=== PATIENT | female | born 1985 | race American Indian/Alaskan Native ===

== ENCOUNTER 2016-12-30 19:22 | Emergency (ER) | payer SELFPAY ==
[2016-12-30 20:59] LABS: Basophils % (Auto) 1.5 % (0.0-1.8); Eosinophils % (Auto) 1.5 % (0.0-4.3); Hematocrit 33.4 % (30.3-42.9); Hemoglobin 10.2 gm/dl (10.1-14.3); Mean Corpuscular HGB Conc 31 % (30-34); Mean Corpuscular Volume 78 fl (79-97); Platelet Count 407 K/mm3 (140-440); White Blood Count 7.3 K/mm3 (4.5-11.0)
[2016-12-30 21:02] LABS: Mean Corpuscular Hemoglobin 24 pg (28-32)
[2016-12-30 21:12] LABS: Bacteria,Urine 3+ /HPF (Negative); Bilirubin,Urine NEG (Negative); Blood,Urine NEG (Negative); Ketones,Urine NEG (Negative); Leukocyte Esterase,Urine NEG (Negative); Mucus,Urine FEW /HPF; Nitrite,Urine POS (Negative); Protein,Urine <15 mg/dL mg/dL (Negative); Urobilinogen,Urine < 2.0 mg/dL (<2.0)
[2016-12-30 21:20] LABS: Alanine Aminotransferase 13 units/L (7-56); Albumin 3.9 g/dL (3.9-5); Albumin/Globulin Ratio 1.5 %; Alkaline Phosphatase 80 units/L (35-129); Anion Gap 15 mmol/L; BUN/Creatinine Ratio 11; Bilirubin,Total < 0.20 mg/dL (0.1-1.2); Blood Urea Nitrogen 8 mg/dL (7-17); Calcium 8.6 mg/dL (8.4-10.2); Carbon Dioxide 24 mmol/L (22-30); Glucose 92 mg/dL (65-100); Lipase 30 units/L (13-60); Potassium 3.8 mmol/L (3.6-5.0); Sodium 136 mmol/L (137-145); Total Protein 6.5 g/dL (6.3-8.2)
--- NOTE | 2016-12-31 00:52 | Emergency Department Report ---
ED Female HPI - General Chief complaint: Urogenital-Female Stated complaint: ABD PAIN Time Seen by Provider: 12/31/16 00:19 Source: patient, family Mode of arrival: Ambulatory Limitations: No Limitations - History of Present Illness Initial comments: Patient reports that she is having right-sided flank pain and lower back pain 5 days. She says she is having urinary frequency and foul-smelling urine. She also states she was having white vaginal discharge that is itchy. Denies any concerned about STDs. Denies any nausea or vomiting. Denies any fever or chills. Denies taking any nvla-dxl-bejwbid medication. Denies any burning on urination. She says the pain is located in her lower back but reported in triage that her pain was at her flank on the right side. Pain is 8 out of 10 to lower back and said it's achy and constant. Denies any vaginal bleed. Patient has no concern for because she said she had bilateral tubal ligation. MD Complaint: other (urinary frequency, foul smelling odor and back pain) Onset/Timin -: days(s) Location: other (lower back pain) Radiation: non-radiating Severity: severe Severity scale (0 -10): 8 Quality: aching Consistency: constant Improves with: none Worsens with: none Are you Now?: No (she says she had bilateral tubal ligation) Last Menstrual Period: 12/15/16 EDC: 09/21/17 Associated Symptoms: vaginal discharge (white vaginal discharge that is normal per patient). denies: vaginal bleeding, abdominal pain, nausea/vomiting, fever/ chills, headaches, loss of appetite, dysuria, hematuria, rash, seizure, shortness of breath, syncope, weakness, other - Related Data Sexually active: Yes Previous Rx's Medication Instructions Recorded Last Taken Type Naproxen 500 mg PO Q12H PRN 3 Days #6 tablet 12/31/16 Unknown Rx Nitrofurantoin Macrocrystal 100 mg PO Q12H 7 Days #14 capsule 12/31/16 Unknown Rx [Nitrofurantoin] Allergies Allergy/AdvReac Type Severity Reaction Status Date / Time No Known Allergies Allergy Verified 12/30/16 20:28 ED Review of Systems ROS: Stated complaint: ABD PAIN Other details as noted in HPI Comment: All other systems reviewed and negative Constitutional: no symptoms reported Respiratory: no symptoms reported Cardiovascular: denies: chest pain, palpitations, dyspnea on exertion, edema, syncope, paroxysmal nocturnal dyspnea Gastrointestinal: denies: abdominal pain, nausea, vomiting, diarrhea, constipation, hematemesis, melena, hematochezia Genitourinary: frequency, discharge, other (ports foul-smelling odor). denies: urgency, dysuria, hematuria, abnormal menses Musculoskeletal: back pain. denies: joint swelling, arthralgia, myalgia Skin: denies: rash Neurological: denies: headache, weakness, numbness, paresthesias, confusion, abnormal gait, vertigo ED Past Medical Hx - Past Medical History Previous Medical History?: No - Surgical History Past Surgical History?: Yes Additional Surgical History: x5 tonsilectomy tubal ligation 10/19 - Family History Family history: hypertension - Social History Smoking Status: Current Some Day Smoker Substance Use Type: Alcohol - Medications Home Medications: Home Medications Medication Instructions Recorded Confirmed Last Taken Type Naproxen 500 mg PO Q12H PRN 3 Days #6 tablet 12/31/16 Unknown Rx Nitrofurantoin Macrocrystal 100 mg PO Q12H 7 Days #14 capsule 12/31/16 Unknown Rx [Nitrofurantoin] ED Physical Exam - General Limitations: No Limitations General appearance: alert, in no apparent distress - Head Head exam: Present: atraumatic, normocephalic, normal inspection - Eye Eye exam: Present: normal appearance, PERRL, EOMI. Absent: periorbital swelling , periorbital tenderness Pupils: Present: normal accommodation - ENT ENT exam: Present: normal exam, normal orophraynx, mucous membranes moist, TM's normal bilaterally, normal external ear exam - Neck Neck exam: Present: normal inspection, full ROM, other (no C-spine tenderness). Absent: tenderness, meningismus, lymphadenopathy - Respiratory Respiratory exam: Present: normal lung sounds bilaterally. Absent: respiratory distress, chest wall tenderness, accessory muscle use - Cardiovascular Cardiovascular Exam: Present: regular rate, normal rhythm, normal heart sounds. Absent: systolic murmur, diastolic murmur - GI/Abdominal GI/Abdominal exam: Present: soft, normal bowel sounds. Absent: distended, tenderness, guarding, rebound, rigid, organomegaly, mass, bruit, pulsatile mass - Extremities Exam Extremities exam: Present: normal inspection, full ROM, normal capillary refill , other (no clubbing, cyanosis or edema. +2 pulses to extremities. No neurovascular compromise.). Absent: tenderness, pedal edema, joint swelling, calf tenderness - Back Exam Back exam: Present: normal inspection, full ROM, other (patient able to ambulate without any difficulties.). Absent: tenderness, CVA tenderness (R), CVA tenderness (L), muscle spasm, paraspinal tenderness, vertebral tenderness, rash noted - Neurological Exam Neurological exam: Present: alert, oriented X3, normal gait, reflexes normal, other (no focal neurological deficit). Absent: motor sensory deficit - Psychiatric Psychiatric exam: Present: normal affect, normal mood - Skin Skin exam: Present: warm, dry, intact, normal color. Absent: rash ED Course Vital Signs 12/30/16 20:29 Temperature 98.6 F Pulse Rate 78 Respiratory 18 Rate Blood Pressure 143/93 O2 Sat by Pulse 99 Oximetry - Reevaluation(s) Reevaluation #1: 12/31/16 02:42 urine as positive for nitrites and 3+ bacteria. Patient given and Rocephin 1 g IM in emergency room. Urine CT negative and cultures are pending. CBC with minor abnormalities but she has normal white count, normal platelet and normal H &H. History with sodium of 136 which mildly decreased and patient able to tolerate liquids in the emergency room. ED Medical Decision Making - Lab Data Result diagrams: 12/30/16 20:39 12/30/16 20:39 Lab Results 12/30/16 12/30/16 12/30/16 Range/Units 20:38 20:38 20:39 WBC 7.3 (4.5-11.0) K/mm3 RBC 4.30 (3.65-5.03) M/mm3 Hgb 10.2 (10.1-14.3) gm/dl Hct 33.4 (30.3-42.9) % MCV 78 L (79-97) fl MCH 24 L (28-32) pg MCHC 31 (30-34) % RDW 19.0 H (13.2-15.2) % Plt Count 407 (140-440) K/mm3 Lymph % (Auto) 46.0 H (13.4-35.0) % [place] % (Auto) 10.6 H (0.0-7.3) % Eos % (Auto) 1.5 (0.0-4.3) % Baso % (Auto) 1.5 (0.0-1.8) % Lymph # 3.4 (1.2-5.4) K/mm3 [place] # 0.8 (0.0-0.8) K/mm3 Eos # 0.1 (0.0-0.4) K/mm3 Baso # 0.1 (0.0-0.1) K/mm3 Seg Neutrophils % 40.4 (40.0-70.0) % Seg Neutrophils # 3.0 (1.8-7.7) K/mm3 Sodium (137-145) mmol/L Potassium (3.6-5.0) mmol/L Chloride (98-107) mmol/L Carbon Dioxide (22-30) mmol/L Anion Gap mmol/L BUN (7-17) mg/dL Creatinine (0.7-1.2) mg/dL Estimated GFR ml/min BUN/Creatinine Ratio % Glucose (65-100) mg/dL Calcium (8.4-10.2) mg/dL Total Bilirubin (0.1-1.2) mg/dL AST (5-40) units/L ALT (7-56) units/L Alkaline Phosphatase (35-129) units/L Total Protein (6.3-8.2) g/dL Albumin (3.9-5) g/dL Albumin/Globulin Ratio % Lipase (13-60) units/L Urine Color Yellow (Yellow) Urine Turbidity Clear (Clear) Urine pH 6.0 (5.0-7.0) Ur Specific [place] 1.019 (1.003-1.030) Urine Protein <15 mg/dl (Negative) mg/dL Urine Glucose (UA) Neg (Negative) mg/dL Urine Ketones Neg (Negative) mg/dL Urine Blood Neg (Negative) Urine Nitrite Pos (Negative) Urine Bilirubin Neg (Negative) Urine Urobilinogen < 2.0 (<2.0) mg/dL Ur Leukocyte Esterase Neg (Negative) Urine WBC (Auto) 0.0 (0.0-6.0) /HPF Urine RBC (Auto) 1.0 (0.0-6.0) /HPF U Epithel Cells (Auto) 4.0 (0-13.0) /HPF Urine Bacteria (Auto) 3+ (Negative) /HPF Urine Mucus Few /HPF Urine HCG, Qual Negative (Negative) 12/30/16 Range/Units 20:39 WBC (4.5-11.0) K/mm3 RBC (3.65-5.03) M/mm3 Hgb (10.1-14.3) gm/dl Hct (30.3-42.9) % MCV (79-97) fl MCH (28-32) pg MCHC (30-34) % RDW (13.2-15.2) % Plt Count (140-440) K/mm3 Lymph % (Auto) (13.4-35.0) % [place] % (Auto) (0.0-7.3) % Eos % (Auto) (0.0-4.3) % Baso % (Auto) (0.0-1.8) % Lymph # (1.2-5.4) K/mm3 [place] # (0.0-0.8) K/mm3 Eos # (0.0-0.4) K/mm3 Baso # (0.0-0.1) K/mm3 Seg Neutrophils % (40.0-70.0) % Seg Neutrophils # (1.8-7.7) K/mm3 Sodium 136 L (137-145) mmol/L Potassium 3.8 (3.6-5.0) mmol/L Chloride 101.0 (98-107) mmol/L Carbon Dioxide 24 (22-30) mmol/L Anion Gap 15 mmol/L BUN 8 (7-17) mg/dL Creatinine 0.7 (0.7-1.2) mg/dL Estimated GFR > 60 ml/min BUN/Creatinine Ratio 11 % Glucose 92 (65-100) mg/dL Calcium 8.6 (8.4-10.2) mg/dL Total Bilirubin < 0.20 (0.1-1.2) mg/dL AST 10 (5-40) units/L ALT 13 (7-56) units/L Alkaline Phosphatase 80 (35-129) units/L Total Protein 6.5 (6.3-8.2) g/dL Albumin 3.9 (3.9-5) g/dL Albumin/Globulin Ratio 1.5 % Lipase 30 (13-60) units/L Urine Color (Yellow) Urine Turbidity (Clear) Urine pH (5.0-7.0) Ur Specific [place] (1.003-1.030) Urine Protein (Negative) mg/dL Urine Glucose (UA) (Negative) mg/dL Urine Ketones (Negative) mg/dL Urine Blood (Negative) Urine Nitrite (Negative) Urine Bilirubin (Negative) Urine Urobilinogen (<2.0) mg/dL Ur Leukocyte Esterase (Negative) Urine WBC (Auto) (0.0-6.0) /HPF Urine RBC (Auto) (0.0-6.0) /HPF U Epithel Cells (Auto) (0-13.0) /HPF Urine Bacteria (Auto) (Negative) /HPF Urine Mucus /HPF Urine HCG, Qual (Negative) Urine culture pending - Medical Decision Making ED Course Patient here reports that she has foul-smelling urine with urine frequency and urgency over the last 5 days. She denies any fever, nausea, chills, abdominal pain. She reports back pain at 8 out of 10. She denies any urinary burning. She reports that she had some white vaginal discharge which is not abnormal for her and not have any order and she is not concerned for STDs. Urinalysis positive for nitrites and 3+ bacteria. test is negative. CBC has some mild abnormalities but her white count, H&H and platelets were normal. Chemistry with sodium of 136 which is mildly decreased and patient is able to tolerate oral fluids. Patient is stable and received Rocephin 1 g IM in emergency room urinary tract infection without any adverse reaction. I discussed diagnosis and treatment plan with patient and she voiced understanding and. I told her that she will need to follow up with her primary care physician for follow-up urinary tract infection and if she does not have a primary care physician she can follow up with outside Medical Center. Patient is requesting medication for yeast infection because she said usually when she takes antibiotics she develops a yeast infection. She was not concerned for STD and did not want any testing. I discussed lab results with patient and she voiced understanding. Critical care attestation.: If time is entered above; I have spent that time in minutes in the direct care of this critically ill patient, excluding procedure time. ED Disposition Clinical Impression: Acute cystitis without hematuria, Urine frequency Pain in lower back Qualifiers: Chronicity: acute Back pain laterality: bilateral Sciatica presence: without sciatica Qualified Code(s): M54.5 - Low back pain Disposition: DC-01 TO HOME OR SELFCARE Is pt being admited?: No Does the pt Need Aspirin: No Condition: Stable Instructions: Urinary Tract Infection in Women (ED), Fluconazole (By mouth), Nitrofurantoin Combination (By mouth) Additional Instructions: Please follow-up with your primary care physician and if you do not have one he can follow-up at [facility] for follow-up urinary tract infection. Please increase her fluid intake. Please take antibiotic as prescribed You can take Diflucan on if he develops a yeast infection. Prescriptions: Naproxen 500 mg PO Q12H PRN 3 Days #6 tablet PRN Reason: Pain Nitrofurantoin Macrocrystal [Nitrofurantoin] 100 mg PO Q12H 7 Days #14 capsule Referrals: PRIMARY CARE, [Primary Care Provider] - 3-5 Days [facility] [Outside] - 3-5 Days Forms: Accompanied Note, Work/School Release Form(ED)
[2016-12-31] MEDS ORDERED: XYLOCAINE 1% MPF 5 mL INFILTRATI ONE (01:08)
[2016-12-31] MEDS ORDERED: ROCEPHIN IM STA (01:08)
[2016-12-31] MEDS ORDERED: MOTRIN PO ONE (02:51)
[2016-12-31 03:04] VITALS: BP 140/87
== END 2016-12-31 03:04 | disposition home or self-care (01) ==
LOC: ED 19:22
DX: N30.00 Acute cystitis without hematuria (principal); M54.5 Low back pain; R35.0 Frequency of micturition; F17.200 Nicotine dependence, unspecified, uncomplicated; Z98.51 Tubal ligation status; Z90.89 Acquired absence of other organs
CPT/HCPCS: 36415; 80053; 81001; 81025; 83690; 85025; 87076; 87086; 87186; 96372; 99283; J0696

== ENCOUNTER 2017-03-09 19:29 | Emergency (ER) | payer SELFPAY ==
[2017-03-09] MEDS ORDERED: MORPHINE IV ONE (21:01)
[2017-03-09] MEDS ORDERED: ZOFRAN IV ONE (21:01)
--- NOTE | 2017-03-09 21:04 | Emergency Department Report ---
ED Neck Pain/Injury HPI - General Chief Complaint: Neck Pain/Injury Stated Complaint: NECK PAIN Time Seen by Provider: 03/09/17 20:44 Mode of arrival: Ambulatory Limitations: No Limitations - History of Present Illness Initial Comments: 32 year old female of the past medical history of Lovell's esophagitis presents to the hospital complaining of left lateral neck pain progressively worsening for 2 weeks. Pain initially described with moderate shooting pain radiating from the back of her neck to the front of her neck. Now patient complains of constant pain and swelling to the left lateral neck area. Pain is where the palpation without alleviating factors. It makes it difficult to swallow and breathe at times. No persistent fever or trauma. - Related Data Previous Rx's Medication Instructions Recorded Last Taken Type Naproxen 500 mg PO Q12H PRN 3 Days #6 tablet 12/31/16 Unknown Rx Nitrofurantoin Macrocrystal 100 mg PO Q12H 7 Days #14 capsule 12/31/16 Unknown Rx [Nitrofurantoin] HYDROcodone/APAP 7.5-325 [[place]] 15 ml PO Q6HR PRN #20 dose 03/10/17 Unknown Rx Allergies Allergy/AdvReac Type Severity Reaction Status Date / Time No Known Allergies Allergy Verified 12/30/16 20:28 ED Review of Systems ROS: Stated complaint: NECK PAIN Other details as noted in HPI Comment: All other systems reviewed and negative Other: Constitutional: No fevers chills Eyes: No eye pain visual changes ENT: No ear pain or throat pain Neck: As per HPI Respiratory: Denies cough wheezing shortness of breath Cardiovascular: Denies chest pain, palpitations, syncope GI: Denies abdominal pain, nausea, vomiting, diarrhea : Denies dysuria Musculoskeletal: Denies back pain, joint swelling Skin: Denies rash, lesions, erythema Neurologic: Denies headache, numbness, weakness Psychiatric: Denies suicidal ideation, hallucinations ED Past Medical Hx - Past Medical History Previous Medical History?: Yes Additional medical history: Lovell's Espophagus - Surgical History Past Surgical History?: No Additional Surgical History: x5 tonsilectomy tubal ligation 10/19 - Social History Smoking Status: Current Some Day Smoker Substance Use Type: None - Medications Home Medications: Home Medications Medication Instructions Recorded Confirmed Last Taken Type Naproxen 500 mg PO Q12H PRN 3 Days #6 tablet 12/31/16 Unknown Rx Nitrofurantoin Macrocrystal 100 mg PO Q12H 7 Days #14 capsule 12/31/16 Unknown Rx [Nitrofurantoin] HYDROcodone/APAP 7.5-325 [[place]] 15 ml PO Q6HR PRN #20 dose 03/10/17 Unknown Rx ED Physical Exam - General Limitations: No Limitations - Other Other exam information: General: No limitations, patient is alert in no acute distress Head exam: Atraumatic, normocephalic Eyes exam: Normal appearance, pupils equal reactive to light, extraocular movements intact ENT: Moist mucous membrane, normal oropharynx, no exudates or posterior pharyngeal swelling Neck exam: Anterior neck asymmetry noted with fullness and swelling to the left side of the anterior neck along the sternocleidal mastoid muscle. Positive fullness, positive tenderness, no warmth or erythema. No stridor Respiratory exam: Clear to auscultation bilateral, no wheezes, rales, crackles Cardiovascular: Normal rate and rhythm, normal heart sounds Abdomen: Soft, nondistended, and nontender, with normal bowel sounds, no rebound, or guarding Extremity: Full range of motion normal inspection no deformity Back: Normal Inspection, full range of motion, no tenderness Neurologic: Alert, oriented x3, cranial nerves intact, no motor or sensory deficit Psychiatric: normal affect, normal mood Skin: Warm, dry, intact ED Course Vital Signs 03/09/17 03/09/17 03/09/17 20:45 20:50 21:01 Temperature 98.2 F 98.2 F Pulse Rate 70 74 80 Respiratory 21 18 11 L Rate Blood Pressure 114/74 122/68 Blood Pressure 123/79 [Left] O2 Sat by Pulse 100 100 100 Oximetry 03/09/17 03/10/17 22:00 00:05 Temperature Pulse Rate 74 Respiratory 16 Rate Blood Pressure 124/85 118/73 Blood Pressure [Left] O2 Sat by Pulse 100 100 Oximetry - Consultations Consultation #1: 03/09/17 23:30 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 rec ENT consult/possible transfer. NO ENT AT THIS HOSPITAL ED Medical Decision Making - Lab Data Result diagrams: 03/09/17 23:05 03/09/17 23:05 Lab Results 03/09/17 03/09/17 03/09/17 Range/Units 23:05 23:05 23:05 WBC 8.6 (4.5-11.0) K/mm3 RBC 4.23 (3.65-5.03) M/mm3 Hgb 10.0 L (10.1-14.3) gm/dl Hct 33.3 (30.3-42.9) % MCV 79 (79-97) fl MCH 24 L (28-32) pg MCHC 30 (30-34) % RDW 17.8 H (13.2-15.2) % Plt Count 475 H (140-440) K/mm3 Lymph % (Auto) 33.2 (13.4-35.0) % [place] % (Auto) 7.8 H (0.0-7.3) % Eos % (Auto) 1.7 (0.0-4.3) % Baso % (Auto) 1.1 (0.0-1.8) % Lymph # 2.8 (1.2-5.4) K/mm3 [place] # 0.7 (0.0-0.8) K/mm3 Eos # 0.1 (0.0-0.4) K/mm3 Baso # 0.1 (0.0-0.1) K/mm3 Seg Neutrophils % 56.2 (40.0-70.0) % Seg Neutrophils # 4.8 (1.8-7.7) K/mm3 Sodium 137 (137-145) mmol/L Potassium 3.9 (3.6-5.0) mmol/L Chloride 101.0 (98-107) mmol/L Carbon Dioxide 23 (22-30) mmol/L Anion Gap 17 mmol/L BUN 12 (7-17) mg/dL Creatinine 0.6 L (0.7-1.2) mg/dL Estimated GFR > 60 ml/min BUN/Creatinine Ratio 20 % Glucose 90 (65-100) mg/dL Calcium 8.3 L (8.4-10.2) mg/dL TSH 2.350 (0.270-4.200) mlU/mL Free T4 1.11 (0.76-1.46) ng/dL HCG, Qual (Negative) 03/09/17 Range/Units 23:05 WBC (4.5-11.0) K/mm3 RBC (3.65-5.03) M/mm3 Hgb (10.1-14.3) gm/dl Hct (30.3-42.9) % MCV (79-97) fl MCH (28-32) pg MCHC (30-34) % RDW (13.2-15.2) % Plt Count (140-440) K/mm3 Lymph % (Auto) (13.4-35.0) % [place] % (Auto) (0.0-7.3) % Eos % (Auto) (0.0-4.3) % Baso % (Auto) (0.0-1.8) % Lymph # (1.2-5.4) K/mm3 [place] # (0.0-0.8) K/mm3 Eos # (0.0-0.4) K/mm3 Baso # (0.0-0.1) K/mm3 Seg Neutrophils % (40.0-70.0) % Seg Neutrophils # (1.8-7.7) K/mm3 Sodium (137-145) mmol/L Potassium (3.6-5.0) mmol/L Chloride (98-107) mmol/L Carbon Dioxide (22-30) mmol/L Anion Gap mmol/L BUN (7-17) mg/dL Creatinine (0.7-1.2) mg/dL Estimated GFR ml/min BUN/Creatinine Ratio % Glucose (65-100) mg/dL Calcium (8.4-10.2) mg/dL TSH (0.270-4.200) mlU/mL Free T4 (0.76-1.46) ng/dL HCG, Qual Negative (Negative) - Radiology Data Radiology results: report reviewed CT neck IV contrast: A cystic lesion of the left lobe of the thyroid gland as described. 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 Cannot exclude hemorrhage within a cyst given mixed density. Ultrasound recommended to further characterize. Differential includes cystic malignancy of the thyroid gland. + mass effect with displacement of the trachea to the right. There is soft tissue density at the base of the toe measuring approximately 7.8 mm x 18 mm. Cannot exclude ectopic thyroid tissue. Direct visualization is recommended. Small nodular densities of the right parotid gland anterior may represent small lymph nodes. Other masses, benign mixed tumor of the parotid gland or with his tumor could present in this manner as well. - Medical Decision Making thryoid cyst + pressing on trachea but airway patent case d/w DR Munoz ENT at [place] Pt encouraged to F/u at ENT clinic at [place] thyroid studies normal Copy of ct report and disc provided - Differential Diagnosis thyroid mass, neck mass, cancer, infection Critical Care Time: No Critical care attestation.: If time is entered above; I have spent that time in minutes in the direct care of this critically ill patient, excluding procedure time. ED Disposition Clinical Impression: Thyroid mass Disposition: TO HOME OR SELFCARE Is pt being admited?: No Does the pt Need Aspirin: No Condition: Stable Instructions: Thyroid Goiter (ED) Additional Instructions: Take the medication as needed for pain. Call the clinic today to schedule appointment. Please return immediately if you have difficulty breathing Prescriptions: HYDROcodone/APAP 7.5-325 [[place]] 15 ml PO Q6HR PRN #20 dose PRN Reason: Pain Referrals: MD FABRICIO at [facility] [Other] - 3-5 Days (ENT doctor call tomorrow for appointment) Time of Disposition: 01:28
--- NOTE | 2017-03-09 22:29 | Cat Scan Report ---
FINAL REPORT PROCEDURE: CT NECK W CON TECHNIQUE: Computerized axial tomography of the soft tissue neck was performed following the IV injection of iodinated nonionic contrast. HISTORY: left lateral neck swelling COMPARISON: No prior studies are available for comparison. FINDINGS: There is a very large low-density lesion in the left lobe of the thyroid gland measuring 4.8 x 4.7 by 6.9 centimeters. There appear to be a few small peripheral calcifications anterior lateral. There appears to be a thin band of thyroid tissue extending around the edges of this lesion suggesting this originates in the thyroid gland. This is causing mass effect displacing the trachea to the right. This has mixed density, some portions measuring up to 16 Hounsfield units other areas measuring up to 46 Hounsfield units. This is causing mass effect depressing the trachea to the right. I cannot exclude a large colloid cyst within the thyroid gland. Given the heterogeneous density I cannot exclude hemorrhage within a colloid cyst.. The thyroid gland is otherwise unremarkable. Nonspecific subcentimeter lymph nodes are scattered in the right and left side of the neck. Parotid glands are not enlarged. There are 2 oval densities in the right lobe of the thyroid gland anteriorly measuring up to 8 millimeters which may represent lymph nodes. Small nodule with in the right parotid gland are not entirely excluded. The submandibular glands and parapharyngeal spaces are unremarkable. Prevertebral soft tissues are unremarkable. The epiglottis is unremarkable. There is a soft tissue density at the base of the tongue measuring approximately 7.8 millimeters by 18 millimeters. I cannot exclude ectopic thyroid tissue. Direct visualization recommended. Other masses not entirely excluded. This is best visualized on sagittal reconstruction image 59 series 202. The larynx is unremarkable. Minimal mucosal thickening seen posteriorly in the right maxillary sinus inferiorly. Visualized paranasal sinuses otherwise are clear. 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 I cannot exclude hemorrhage within a cyst given the mixed density.. Thyroid ultrasound recommended to further characterize. A well-differentiated cystic malignancy of the thyroid gland could present in this manner. Possible lingual thyroid. Direct visualization suggested. Small nodular densities right parotid gland anteriorly may represent small lymph nodes. Other masses, benign mixed tumor of the parotid gland or Warthin's tumor could present in this manner as well.
[2017-03-09 23:37] LABS: Basophils # (Auto) 0.1 K/mm3 (0.0-0.1); Basophils % (Auto) 1.1 % (0.0-1.8); Eosinophils # (Auto) 0.1 K/mm3 (0.0-0.4); Eosinophils % (Auto) 1.7 % (0.0-4.3); Lymphocytes # (Auto) 2.8 K/mm3 (1.2-5.4); Lymphocytes % (Auto) 33.2 % (13.4-35.0); Mean Corpuscular HGB Conc 30 % (30-34); Mean Corpuscular Volume 79 fl (79-97); Monocytes # (Auto) 0.7 K/mm3 (0.0-0.8); Monocytes % (Auto) 7.8 % (0.0-7.3); Platelet Count 475 K/mm3 (140-440); Red Blood Count 4.23 M/mm3 (3.65-5.03); Red Cell Distribution Width 17.8 % (13.2-15.2)
[2017-03-09 23:38] LABS: Hematocrit 33.3 % (30.3-42.9); Mean Corpuscular Hemoglobin 24 pg (28-32)
[2017-03-10 00:02] LABS: BUN/Creatinine Ratio 20; Blood Urea Nitrogen 12 mg/dL (7-17); Calcium 8.3 mg/dL (8.4-10.2); Hemolysis Index 7
[2017-03-10 00:09] LABS: Free T4 (Free Thyroxine) 1.11 ng/dL (0.76-1.46)
[2017-03-10] MEDS ORDERED: DILAUDID IV ONE ×2 (00:53→01:37)
[2017-03-10] MEDS ORDERED: ALUM-MAG HYDROX-SIMETH 200-200-20MG/5ML PO ONE (00:53)
[2017-03-10] MEDS ORDERED: ZOFRAN IV ONE (00:53)
[2017-03-10 02:34] VITALS: BP 111/69
== END 2017-03-10 01:52 | disposition home or self-care (01) ==
LOC: ED 19:29
DX: R22.1 Localized swelling, mass and lump, neck (principal); F17.200 Nicotine dependence, unspecified, uncomplicated
CPT/HCPCS: 36415; 70491; 80048; 84439; 84443; 84703; 85025; 96374; 96375; 96376; 99284; J1170; J2270; J2405; Q9967

== ENCOUNTER 2017-06-30 08:19 | Emergency (ER) | payer BC ==
[2017-06-30 08:56] VITALS: BP 122/69
--- NOTE | 2017-06-30 09:33 | Emergency Department Report ---
ED Female HPI - General Chief complaint: Urogenital-Female Stated complaint: ABDOMINAL PAIN/DISCHARGE Time Seen by Provider: 06/30/17 09:28 Source: patient Mode of arrival: Ambulatory Limitations: No Limitations - History of Present Illness Initial comments: 32-year-old female presents with complaint of one week of vaginal discharge. Denies fevers chills nausea or vomiting. LMP 05/29/17. States she was treated for BV and yeast infection recently MD Complaint: vaginal discharge Onset/Timin -: week(s) Severity: moderate Improves with: none Worsens with: none - Related Data Previous Rx's Medication Instructions Recorded Last Taken Type Naproxen 500 mg PO Q12H PRN 3 Days #6 tablet 12/31/16 Unknown Rx Nitrofurantoin Macrocrystal 100 mg PO Q12H 7 Days #14 capsule 12/31/16 Unknown Rx [Nitrofurantoin] HYDROcodone/APAP 7.5-325 [[place]] 15 ml PO Q6HR PRN #20 dose 03/10/17 Unknown Rx Fluconazole [Diflucan TAB] 150 mg PO ONCE #1 tablet 06/30/17 Unknown Rx metroNIDAZOLE [Metronidazole] 500 mg PO BID #14 tablet 06/30/17 Unknown Rx Allergies Allergy/AdvReac Type Severity Reaction Status Date / Time No Known Allergies Allergy Verified 12/30/16 20:28 ED Review of Systems ROS: Stated complaint: ABDOMINAL PAIN/DISCHARGE Other details as noted in HPI Constitutional: denies: chills, fever Eyes: denies: eye pain, eye discharge, vision change ENT: denies: ear pain, throat pain Respiratory: denies: cough, shortness of breath, wheezing Cardiovascular: denies: chest pain, palpitations Endocrine: no symptoms reported Gastrointestinal: denies: abdominal pain, nausea, diarrhea Genitourinary: denies: urgency, dysuria, discharge Musculoskeletal: denies: back pain, joint swelling, arthralgia Skin: denies: rash, lesions Neurological: denies: headache, weakness, paresthesias Psychiatric: denies: anxiety, depression Hematological/Lymphatic: denies: easy bleeding, easy bruising ED Past Medical Hx - Past Medical History Previous Medical History?: No Additional medical history: Lovell's Espophagus - Surgical History Past Surgical History?: No Additional Surgical History: x5 tonsilectomy tubal ligation 10/19 - Social History Smoking Status: Current Some Day Smoker Substance Use Type: None - Medications Home Medications: Home Medications Medication Instructions Recorded Confirmed Last Taken Type Naproxen 500 mg PO Q12H PRN 3 Days #6 tablet 12/31/16 Unknown Rx Nitrofurantoin Macrocrystal 100 mg PO Q12H 7 Days #14 capsule 12/31/16 Unknown Rx [Nitrofurantoin] HYDROcodone/APAP 7.5-325 [[place]] 15 ml PO Q6HR PRN #20 dose 03/10/17 Unknown Rx Fluconazole [Diflucan TAB] 150 mg PO ONCE #1 tablet 06/30/17 Unknown Rx metroNIDAZOLE [Metronidazole] 500 mg PO BID #14 tablet 06/30/17 Unknown Rx ED Physical Exam - General Limitations: No Limitations General appearance: alert, in no apparent distress - Head Head exam: Present: atraumatic, normocephalic - Eye Eye exam: Present: normal appearance, PERRL, EOMI Pupils: Present: normal accommodation - ENT ENT exam: Present: mucous membranes moist - Neck Neck exam: Present: normal inspection - Respiratory Respiratory exam: Present: normal lung sounds bilaterally. Absent: respiratory distress - Cardiovascular Cardiovascular Exam: Present: regular rate, normal rhythm. Absent: systolic murmur, diastolic murmur, rubs, gallop - GI/Abdominal GI/Abdominal exam: Present: soft, normal bowel sounds - Extremities Exam Extremities exam: Present: normal inspection - Back Exam Back exam: Present: normal inspection - Neurological Exam Neurological exam: Present: alert, oriented X3 - Psychiatric Psychiatric exam: Present: normal affect, normal mood - Skin Skin exam: Present: warm, dry, intact, normal color. Absent: rash ED Course Vital Signs 06/30/17 08:53 Temperature 98.4 F Pulse Rate 77 Respiratory 16 Rate Blood Pressure 122/69 O2 Sat by Pulse 98 Oximetry ED Medical Decision Making - Medical Decision Making A/P: vaginal discharge 1-f/u with OBGYN 2-will treat patient empirically based on symptoms 3- UA unremarkable, preg neg Critical care attestation.: If time is entered above; I have spent that time in minutes in the direct care of this critically ill patient, excluding procedure time. ED Disposition Clinical Impression: Vaginal discharge Disposition: DC- TO HOME OR SELFCARE Is pt being admited?: No Does the pt Need Aspirin: No Condition: Stable Instructions: Bacterial Vaginosis (ED) Prescriptions: Fluconazole [Diflucan TAB] 150 mg PO ONCE #1 tablet metroNIDAZOLE [Metronidazole] 500 mg PO BID #14 tablet Referrals: [facility] [Provider Group] - 3-5 Days [facility] [Provider Group] - 3-5 Days Time of Disposition: 10:35
[2017-06-30 10:15] LABS: Bilirubin,Urine NEG (Negative); Blood,Urine NEG (Negative); Color,Urine Yellow (Yellow); Mucus,Urine FEW /HPF; Protein,Urine <15 mg/dL mg/dL (Negative)
[2017-06-30 10:24] LABS: HCG Qualitative,Urine Negative (Negative)
== END 2017-06-30 10:52 | disposition home or self-care (01) ==
LOC: ED 08:19
DX: N89.8 Other specified noninflammatory disorders of vagina (principal); Z72.0 Tobacco use
CPT/HCPCS: 81001; 81025; 87086; 87210; 87591; 99283

== ENCOUNTER 2017-07-09 10:29 | Emergency (ER) | payer BC ==
[2017-07-09] MEDS ORDERED: ZOFRAN IV ONE (11:44)
[2017-07-09] MEDS ORDERED: NACL 0.9% 1000 ML 1,000 ML IV ONE (11:44)
--- NOTE | 2017-07-09 11:47 | Emergency Department Report ---
Blank Doc - Documentation Documentation: 32yo female with no significant pmh came in complaining of abdominal pain/ diarrhea for 4 days, pt states she has had diarrhea 3-4 times a day Pt denies n/v/cp/sob. Pt denies fever, chills, pt is under no acute distress
[2017-07-09] MEDS ORDERED: TORADOL IV ONE (11:52)
[2017-07-09 12:12] LABS: Basophils # (Auto) 0.1 K/mm3 (0.0-0.1); Basophils % (Auto) 1.2 % (0.0-1.8); Eosinophils # (Auto) 0.2 K/mm3 (0.0-0.4); Eosinophils % (Auto) 2.7 % (0.0-4.3); Hematocrit 31.7 % (30.3-42.9); Hemoglobin 9.7 gm/dl (10.1-14.3); Lymphocytes % (Auto) 36.2 % (13.4-35.0); Mean Corpuscular HGB Conc 31 % (30-34); Mean Corpuscular Volume 74 fl (79-97); Monocytes # (Auto) 0.7 K/mm3 (0.0-0.8); Monocytes % (Auto) 13.1 % (0.0-7.3); Platelet Count 558 K/mm3 (140-440); Red Blood Count 4.26 M/mm3 (3.65-5.03); Red Cell Distribution Width 16.9 % (13.2-15.2)
[2017-07-09 12:29] LABS: Alanine Aminotransferase 13 units/L (7-56); Albumin 3.8 g/dL (3.9-5); BUN/Creatinine Ratio 9; Blood Urea Nitrogen 6 mg/dL (7-17); Calcium 8.9 mg/dL (8.4-10.2); Hemolysis Index 0; Lipase 25 units/L (13-60)
[2017-07-09 12:38] LABS: Mean Corpuscular Hemoglobin 23 pg (28-32)
--- NOTE | 2017-07-09 13:00 | Emergency Department Report ---
ED Abdominal Pain HPI - General Chief Complaint: Abdominal Pain Stated Complaint: NAUSEA X5DAYS/DIARRHEA/ABD PAIN Time Seen by Provider: 07/09/17 11:16 Source: patient Mode of arrival: Ambulatory Limitations: No Limitations - History of Present Illness Initial Comments: This is a 32-year-old female nontoxic, well nourished in appearance, no acute signs of distress presents to the ED with c/o of abdominal pain and diarrhea x4 days. Patient stated had episode of 3-4 times of diarrhea. Patient denies any vomiting but stated has nausea. Patient denies any recent travels. Patient describes abdominal pain as cramping diffuse. Patient denies any chest pain, shortness of breathe, fever, chills, headache, vomiting, back pain, numbness or tingling. Patient denies any urinary symptoms. Patient denies any allergies or PMH. MD Complaint: abdominal pain -: days(s) (4) Location: diffuse Radiation: none Migration to: no migration Severity: mild Severity scale (0 -10): 3 Quality: cramping Consistency: constant Improves With: nothing Worsens With: nothing Associated Symptoms: nausea, diarrhea. denies: vomiting, fever, chills, constipation, dysuria, hematemesis, hematochezia, melena, hematuria, anorexia, syncope - Related Data Previous Rx's Medication Instructions Recorded Last Taken Type Naproxen 500 mg PO Q12H PRN 3 Days #6 tablet 12/31/16 Unknown Rx Nitrofurantoin Macrocrystal 100 mg PO Q12H 7 Days #14 capsule 12/31/16 Unknown Rx [Nitrofurantoin] HYDROcodone/APAP 7.5-325 [[place]] 15 ml PO Q6HR PRN #20 dose 03/10/17 Unknown Rx Fluconazole [Diflucan TAB] 150 mg PO ONCE #1 tablet 06/30/17 Unknown Rx metroNIDAZOLE [Metronidazole] 500 mg PO BID #14 tablet 06/30/17 Unknown Rx Ibuprofen [Motrin] 600 mg PO Q8H PRN #30 tablet 07/09/17 Unknown Rx Ondansetron [Zofran Odt] 4 mg PO Q8HR PRN #20 tab.rapdis 07/09/17 Unknown Rx Allergies Allergy/AdvReac Type Severity Reaction Status Date / Time No Known Allergies Allergy Verified 07/09/17 10:39 ED Review of Systems ROS: Stated complaint: NAUSEA X5DAYS/DIARRHEA/ABD PAIN Other details as noted in HPI Constitutional: denies: chills, fever Eyes: denies: eye pain, eye discharge, vision change ENT: denies: ear pain, throat pain Respiratory: denies: cough, shortness of breath, wheezing Cardiovascular: denies: chest pain, palpitations Endocrine: no symptoms reported Gastrointestinal: abdominal pain, nausea, diarrhea. denies: vomiting, constipation Genitourinary: denies: urgency, dysuria, discharge Musculoskeletal: denies: back pain, joint swelling, arthralgia Skin: denies: rash, lesions Neurological: denies: headache, weakness, paresthesias Psychiatric: denies: anxiety, depression Hematological/Lymphatic: denies: easy bleeding, easy bruising ED Past Medical Hx - Past Medical History Previous Medical History?: No Additional medical history: Lovell's Espophagus - Surgical History Additional Surgical History: x5 tonsilectomy tubal ligation 10/19 - Social History Smoking Status: Current Some Day Smoker Substance Use Type: None - Medications Home Medications: Home Medications Medication Instructions Recorded Confirmed Last Taken Type Naproxen 500 mg PO Q12H PRN 3 Days #6 tablet 12/31/16 Unknown Rx Nitrofurantoin Macrocrystal 100 mg PO Q12H 7 Days #14 capsule 12/31/16 Unknown Rx [Nitrofurantoin] HYDROcodone/APAP 7.5-325 [[place]] 15 ml PO Q6HR PRN #20 dose 03/10/17 Unknown Rx Fluconazole [Diflucan TAB] 150 mg PO ONCE #1 tablet 06/30/17 Unknown Rx metroNIDAZOLE [Metronidazole] 500 mg PO BID #14 tablet 06/30/17 Unknown Rx Ibuprofen [Motrin] 600 mg PO Q8H PRN #30 tablet 07/09/17 Unknown Rx Ondansetron [Zofran Odt] 4 mg PO Q8HR PRN #20 tab.rapdis 07/09/17 Unknown Rx ED Physical Exam - General Limitations: No Limitations General appearance: alert, in no apparent distress - Head Head exam: Present: atraumatic, normocephalic - Eye Eye exam: Present: normal appearance Pupils: Present: normal accommodation - ENT ENT exam: Present: normal exam, mucous membranes moist - Neck Neck exam: Present: normal inspection, full ROM. Absent: tenderness, meningismus, lymphadenopathy - Respiratory Respiratory exam: Present: normal lung sounds bilaterally. Absent: respiratory distress, wheezes, rales, rhonchi, stridor, chest wall tenderness, accessory muscle use, decreased breath sounds, prolonged expiratory - Cardiovascular Cardiovascular Exam: Present: regular rate, normal rhythm, normal heart sounds. Absent: bradycardia, tachycardia, irregular rhythm, systolic murmur, diastolic murmur, rubs, gallop - GI/Abdominal GI/Abdominal exam: Present: soft, tenderness (diffuse), normal bowel sounds. Absent: distended, guarding, rebound, rigid, diminished bowel sounds - Expanded GI/Abdominal Exam Expanded GI/Abdominal exam: Absent: psoas sign, obturator sign, heel tap sign, Jackson's sign, Rovsing's sign, tenderness at [place]bur[place]'s Point, ascites - Rectal Rectal exam: Present: deferred - Extremities Exam Extremities exam: Present: normal inspection, full ROM, normal capillary refill. Absent: tenderness - Back Exam Back exam: Present: normal inspection, full ROM. Absent: tenderness, CVA tenderness (R), CVA tenderness (L), muscle spasm, paraspinal tenderness, vertebral tenderness, rash noted - Neurological Exam Neurological exam: Present: alert, oriented X3, CN II-XII intact, normal gait - Psychiatric Psychiatric exam: Present: normal affect, normal mood - Skin Skin exam: Present: warm, dry, intact, normal color. Absent: rash ED Course Vital Signs 07/09/17 07/09/17 10:39 11:18 Temperature 98.8 F Pulse Rate 82 Respiratory 20 17 Rate Blood Pressure 128/74 O2 Sat by Pulse 99 Oximetry - Reevaluation(s) Reevaluation #1: 07/09/17 12:59 Patient is speaking in full sentences with no signs of distress noted. - Consultations Consultation #1: Patient has been consulted with Dr. Leger about patient history, physical exam , and labs/CT results and examined and screened patient and agrees to ED plan of care and discharge plan of care. ED Medical Decision Making - Lab Data Result diagrams: 07/09/17 11:31 07/09/17 11:31 - Medical Decision Making This is a 32-year-old female that presents with abdominal pain and nausea. Patient is stable and was examined by me and Dr. Leger. Ct of abdominal with contrast obtained and Dr. Figueredo dictated and faxed a report with no acute process and hiatal hernia. Patient received Toradol IV which decreased his symptoms have resolved and subsided. A by mouth challenge has been obtained and patient trying to produce with no nausea vomiting. Patient discharged with Motrin and Zofran. He was instructed to Follow-up with a primary care doctor in 3-5 days or if symptoms worsen and continue return to emergency room as soon as possible. At time of discharge, the patient does not seem toxic or ill in appearance. No acute signs of distress noted. Patient agrees to discharge treatment plan of care. No further questions noted by the patient. Critical care attestation.: If time is entered above; I have spent that time in minutes in the direct care of this critically ill patient, excluding procedure time. ED Disposition Clinical Impression: Nausea, Hiatal hernia Abdominal pain Qualifiers: Abdominal location: generalized Qualified Code(s): R10.84 - Generalized abdominal pain Disposition: TO HOME OR SELFCARE Is pt being admited?: No Does the pt Need Aspirin: No Condition: Stable Instructions: Abdominal Pain (ED), Hiatal Hernia (ED) Additional Instructions: Follow-up with a primary care doctor in 3-5 days or if symptoms worsen and continue return to emergency room as soon as possible. Prescriptions: Ibuprofen [Motrin] 600 mg PO Q8H PRN #30 tablet PRN Reason: Pain Ondansetron [Zofran Odt] 4 mg PO Q8HR PRN #20 tab.rapdis PRN Reason: Nausea Referrals: PRIMARY CARE, [Primary Care Provider] - 3-5 Days BELKIS FU MD [Staff Physician] - 3-5 Days [facility] [Outside] - 3-5 Days [facility] [Outside] - 3-5 Days Forms: Work/School Release Form(ED)
[2017-07-09 13:17] LABS: Bacteria,Urine 1+ /HPF (Negative); Bilirubin,Urine NEG (Negative); Blood,Urine NEG (Negative); Color,Urine Yellow (Yellow); Protein,Urine <15 mg/dL mg/dL (Negative); Urobilinogen,Urine < 2.0 mg/dL (<2.0); WBC,Urine < 1.0 /HPF (0.0-6.0)
[2017-07-09 13:19] LABS: HCG Qualitative,Urine Negative (Negative)
[2017-07-09 14:47] VITALS: BP 117/76
--- NOTE | 2017-07-13 13:02 | Cat Scan Report ---
CT ABDOMEN PELVIS WITH CONTRAST: HISTORY: abdominal pain. COMPARISON: none. TECHNIQUE: Helical CT in 1.25mm intervals following IV contrast. Sagittal and coronal reconstructions. FINDINGS: Lung bases: Normal heart size. Clear lung bases. Small to medium hiatal hernia is identified. Liver: Mild diffuse fatty infiltration with focal fatty sparing along the falciform ligament. No enlargement, surface nodularity or mass. Biliary system: Normal. Pancreas: Normal. Spleen: Normal. Kidneys/ureters/bladder: Normal. Adrenal glands: Normal. Aorta: Normal. Intestines: Unremarkable given no oral contrast was administered. Appendix: Normal. Pelvic viscera: Normal. Ascites: None. Adenopathy: None. Musculoskeletal: Normal. IMPRESSION: No acute process is identified. Hiatal hernia. Mild fatty change in the liver.
== END 2017-07-09 14:47 | disposition home or self-care (01) ==
LOC: ED 10:29
DX: K44.9 Diaphragmatic hernia without obstruction or gangrene (principal); R10.84 Generalized abdominal pain; R11.0 Nausea; Z72.0 Tobacco use; Z98.51 Tubal ligation status
CPT/HCPCS: 36415; 74177; 80053; 81001; 81025; 82150; 83690; 85025; 96361; 96374; 96375; 99284; J1885; J2405; J7030; Q9967

== ENCOUNTER 2019-01-16 17:02 | Emergency (ER) | payer SELFPAY ==
--- NOTE | 2019-01-16 17:46 | Emergency Department Report ---
Blank Doc - Documentation Documentation: 33-year-old female that presents with vaginal discharge, nausea/vomiting, and abdominal pain. This initial assessment/diagnostic orders/clinical plan/treatment(s) is/are subject to change based on patient's health status, clinical progression and re- assessment by fellow clinical providers in the ED. Further treatment and workup at subsequent clinical providers discretion. Patient/guardians urged not to elope from the ED as their condition may be serious if not clinically assessed and managed. Initial orders include: 1- Patient sent to [facility] for further evaluation and treatment 2- labs 3- UA
[2019-01-16 18:31] LABS: Bacteria,Urine 1+ /HPF (Negative); Bilirubin,Urine NEG (Negative); Blood,Urine NEG (Negative); Color,Urine Yellow (Yellow); Mucus,Urine 2+ /HPF; Urobilinogen,Urine < 2.0 mg/dL (<2.0); WBC,Urine < 1.0 /HPF (0.0-6.0)
[2019-01-16 19:13] LABS: Basophils # (Auto) 0.1 K/mm3 (0.0-0.1); Basophils % (Auto) 0.9 % (0.0-1.8); Eosinophils % (Auto) 0.8 % (0.0-4.3); Hematocrit 32.9 % (30.3-42.9); Hemoglobin 10.2 gm/dl (10.1-14.3); Lymphocytes # (Auto) 2.2 K/mm3 (1.2-5.4); Lymphocytes % (Auto) 38.1 % (13.4-35.0); Mean Corpuscular HGB Conc 31 % (30-34); Mean Corpuscular Volume 75 fl (79-97); Monocytes # (Auto) 0.6 K/mm3 (0.0-0.8); Monocytes % (Auto) 10.2 % (0.0-7.3); Platelet Count 458 K/mm3 (140-440); Red Cell Distribution Width 17.9 % (13.2-15.2)
[2019-01-16 19:26] LABS: Alanine Aminotransferase 19 units/L (7-56); Albumin 4.1 g/dL (3.9-5); BUN/Creatinine Ratio 11; Blood Urea Nitrogen 8 mg/dL (7-17); Calcium 9.3 mg/dL (8.4-10.2); Hemolysis Index 4
[2019-01-16] MEDS ORDERED: PANTOPRAZOLE 40 MG TAB PO ONE (20:50)
--- NOTE | 2019-01-16 20:55 | Emergency Department Report ---
ED Abdominal Pain HPI - General Chief Complaint: Abdominal Pain Stated Complaint: VAGINAL DISCHARGE/ABD PAIN/TOOTHACHE Time Seen by Provider: 01/16/19 17:44 Source: patient Mode of arrival: Ambulatory Limitations: No Limitations - History of Present Illness Initial Comments: 33-year-old -[place] female patient with history of Lovell's esophagus complaints of mid abdominal pain intermittently for the past 2 weeks, vaginal discharge and vaginal itching for the past week, and left upper tooth pain for the past few days. He should states she has seen her PCP was referred to GI for an upper GI endoscopy. She states she has history of an abnormal lesion in her stomach that is supposed to be rechecked every few years. She states intermittent nausea/vomiting and abdominal bloating. She denies any hematemesis/coffee ground emesis, hematochezia/melena, or abnormal weight loss. She rates her pain as a 7/10 in severity and describes it as a stabbing achy pain. Patient states she recently had STI testing and was negative and denies any sexual activity since. She states she is concerned for BV and yeast infection due to having these in the past and her symptoms are the same. She denies any fever/chills/sweat, dysuria, abnormal vaginal bleeding, or hematuria. She states she was supposed to have her left upper tooth pulled at the end of this year due to infection and pain, however states she cannot afford it at the time. She denies any facial swelling or trouble swallowing. MD Complaint: abdominal pain -: days(s), week(s) Location: periumbilical, epigastric Migration to: no migration Severity scale (0 -10): 7 - Related Data Previous Rx's Medication Instructions Recorded Last Taken Type Naproxen 500 mg PO Q12H PRN 3 Days #6 tablet 12/31/16 Unknown Rx Nitrofurantoin Macrocrystal 100 mg PO Q12H 7 Days #14 capsule 12/31/16 Unknown Rx [Nitrofurantoin] HYDROcodone/APAP 7.5-325 [[place]] 15 ml PO Q6HR PRN #20 dose 03/10/17 Unknown Rx Fluconazole [Diflucan TAB] 150 mg PO ONCE #1 tablet 06/30/17 Unknown Rx metroNIDAZOLE [Metronidazole] 500 mg PO BID #14 tablet 06/30/17 Unknown Rx Ondansetron [Zofran Odt] 4 mg PO Q8HR PRN #20 tab.rapdis 07/09/17 Unknown Rx Fluconazole [Diflucan] 150 mg PO QDAY 2 Days #2 tablet 12/29/17 Unknown Rx Ibuprofen [Motrin 600 MG tab] 600 mg PO Q8H PRN #30 tablet 12/29/17 Unknown Rx Acetaminophen/Codeine [Tylenol 1 tab PO Q8H PRN #6 tab 01/16/19 Unknown Rx /Codeine # 3 tab] Amoxicillin [Trimox CAP] 500 mg PO Q8H 7 Days #21 capsule 01/16/19 Unknown Rx Fluconazole [Diflucan TAB] 150 mg PO ONCE 1 Days #2 tablet 01/16/19 Unknown Rx metroNIDAZOLE [Flagyl TAB] 500 mg PO Q12HR 7 Days #14 tab 01/16/19 Unknown Rx Allergies Allergy/AdvReac Type Severity Reaction Status Date / Time No Known Allergies Allergy Verified 07/09/17 10:39 ED Review of Systems ROS: Stated complaint: VAGINAL DISCHARGE/ABD PAIN/TOOTHACHE Other details as noted in HPI Comment: All other systems reviewed and negative ENT: as per HPI Gastrointestinal: as per HPI Genitourinary: as per HPI Skin: denies: rash, lesions ED Past Medical Hx - Past Medical History Previous Medical History?: Yes Additional medical history: Lovell's Esophagus - Surgical History Past Surgical History?: Yes Additional Surgical History: x5 tonsilectomy tubal ligation 10/19 - Social History Smoking Status: Never Smoker Substance Use Type: None - Medications Home Medications: Home Medications Medication Instructions Recorded Confirmed Last Taken Type Naproxen 500 mg PO Q12H PRN 3 Days #6 tablet 12/31/16 Unknown Rx Nitrofurantoin Macrocrystal 100 mg PO Q12H 7 Days #14 capsule 12/31/16 Unknown Rx [Nitrofurantoin] HYDROcodone/APAP 7.5-325 [[place]] 15 ml PO Q6HR PRN #20 dose 03/10/17 Unknown Rx Fluconazole [Diflucan TAB] 150 mg PO ONCE #1 tablet 06/30/17 Unknown Rx metroNIDAZOLE [Metronidazole] 500 mg PO BID #14 tablet 06/30/17 Unknown Rx Ondansetron [Zofran Odt] 4 mg PO Q8HR PRN #20 tab.rapdis 07/09/17 Unknown Rx Fluconazole [Diflucan] 150 mg PO QDAY 2 Days #2 tablet 12/29/17 Unknown Rx Ibuprofen [Motrin 600 MG tab] 600 mg PO Q8H PRN #30 tablet 12/29/17 Unknown Rx Acetaminophen/Codeine [Tylenol 1 tab PO Q8H PRN #6 tab 01/16/19 Unknown Rx /Codeine # 3 tab] Amoxicillin [Trimox CAP] 500 mg PO Q8H 7 Days #21 capsule 01/16/19 Unknown Rx Fluconazole [Diflucan TAB] 150 mg PO ONCE 1 Days #2 tablet 01/16/19 Unknown Rx metroNIDAZOLE [Flagyl TAB] 500 mg PO Q12HR 7 Days #14 tab 01/16/19 Unknown Rx ED Physical Exam - General Limitations: No Limitations General appearance: alert, in no apparent distress - Head Head exam: Present: atraumatic, normocephalic - Eye Eye exam: Present: normal appearance - ENT ENT exam: Present: normal orophraynx, mucous membranes moist - Neck Neck exam: Present: normal inspection - Respiratory Respiratory exam: Present: normal lung sounds bilaterally. Absent: respiratory distress - Cardiovascular Cardiovascular Exam: Present: regular rate, normal rhythm. Absent: systolic murmur, diastolic murmur, rubs, gallop - GI/Abdominal GI/Abdominal exam: Present: soft, tenderness, normal bowel sounds. Absent: distended, guarding, rebound, rigid (mild epigastric and periumbilical tenderness on palpation ) - Rectal Rectal exam: Present: deferred - Extremities Exam Extremities exam: Absent: pedal edema, joint swelling - Back Exam Back exam: Present: full ROM. Absent: CVA tenderness (R), CVA tenderness (L) - Psychiatric Psychiatric exam: Present: normal affect, normal mood - Skin Skin exam: Present: warm, dry, intact, normal color. Absent: rash ED Course Vital Signs 01/16/19 01/16/19 17:48 22:50 Temperature 98.1 F Pulse Rate 79 78 Respiratory 18 18 Rate Blood Pressure 118/64 Blood Pressure 124/83 [Left] O2 Sat by Pulse 100 100 Oximetry ED Medical Decision Making - Lab Data Result diagrams: 01/16/19 18:50 01/16/19 18:50 Lab Results 01/16/19 01/16/19 01/16/19 Range/Units 17:59 18:50 18:50 WBC 5.7 (4.5-11.0) K/mm3 RBC 4.40 (3.65-5.03) M/mm3 Hgb 10.2 (10.1-14.3) gm/dl Hct 32.9 (30.3-42.9) % MCV 75 L (79-97) fl MCH 23 L (28-32) pg MCHC 31 (30-34) % RDW 17.9 H (13.2-15.2) % Plt Count 458 H (140-440) K/mm3 Lymph % (Auto) 38.1 H (13.4-35.0) % Stokes % (Auto) 10.2 H (0.0-7.3) % Eos % (Auto) 0.8 (0.0-4.3) % Baso % (Auto) 0.9 (0.0-1.8) % Lymph # 2.2 (1.2-5.4) K/mm3 Stokes # 0.6 (0.0-0.8) K/mm3 Eos # 0.0 (0.0-0.4) K/mm3 Baso # 0.1 (0.0-0.1) K/mm3 Seg Neutrophils % 50.0 (40.0-70.0) % Seg Neutrophils # 2.8 (1.8-7.7) K/mm3 Sodium 139 (137-145) mmol/L Potassium 3.6 (3.6-5.0) mmol/L Chloride 104.4 (98-107) mmol/L Carbon Dioxide 25 (22-30) mmol/L Anion Gap 13 mmol/L BUN 8 (7-17) mg/dL Creatinine 0.7 (0.7-1.2) mg/dL Estimated GFR > 60 ml/min BUN/Creatinine Ratio 11 % Glucose 101 H (65-100) mg/dL Calcium 9.3 (8.4-10.2) mg/dL Total Bilirubin 0.20 (0.1-1.2) mg/dL AST 14 (5-40) units/L ALT 19 (7-56) units/L Alkaline Phosphatase 106 (35-129) units/L Total Protein 7.3 (6.3-8.2) g/dL Albumin 4.1 (3.9-5) g/dL Albumin/Globulin Ratio 1.3 % Lipase 34 (13-60) units/L HCG, Qual (Negative) Urine Color Yellow (Yellow) Urine Turbidity Slightly-cloudy (Clear) Urine pH 6.0 (5.0-7.0) Ur Specific [place] 1.027 (1.003-1.030) Urine Protein 30 mg/dl (Negative) mg/dL Urine Glucose (UA) Neg (Negative) mg/dL Urine Ketones Neg (Negative) mg/dL Urine Blood Neg (Negative) Urine Nitrite Neg (Negative) Urine Bilirubin Neg (Negative) Urine Urobilinogen < 2.0 (<2.0) mg/dL Ur Leukocyte Esterase Neg (Negative) Urine WBC (Auto) < 1.0 (0.0-6.0) /HPF Urine RBC (Auto) 1.0 (0.0-6.0) /HPF U Epithel Cells (Auto) 13.0 (0-13.0) /HPF Urine Bacteria (Auto) 1+ (Negative) /HPF Urine Mucus 2+ /HPF 01/16/19 Range/Units 18:50 WBC (4.5-11.0) K/mm3 RBC (3.65-5.03) M/mm3 Hgb (10.1-14.3) gm/dl Hct (30.3-42.9) % MCV (79-97) fl MCH (28-32) pg MCHC (30-34) % RDW (13.2-15.2) % Plt Count (140-440) K/mm3 Lymph % (Auto) (13.4-35.0) % Stokes % (Auto) (0.0-7.3) % Eos % (Auto) (0.0-4.3) % Baso % (Auto) (0.0-1.8) % Lymph # (1.2-5.4) K/mm3 Stokes # (0.0-0.8) K/mm3 Eos # (0.0-0.4) K/mm3 Baso # (0.0-0.1) K/mm3 Seg Neutrophils % (40.0-70.0) % Seg Neutrophils # (1.8-7.7) K/mm3 Sodium (137-145) mmol/L Potassium (3.6-5.0) mmol/L Chloride (98-107) mmol/L Carbon Dioxide (22-30) mmol/L Anion Gap mmol/L BUN (7-17) mg/dL Creatinine (0.7-1.2) mg/dL Estimated GFR ml/min BUN/Creatinine Ratio % Glucose (65-100) mg/dL Calcium (8.4-10.2) mg/dL Total Bilirubin (0.1-1.2) mg/dL AST (5-40) units/L ALT (7-56) units/L Alkaline Phosphatase (35-129) units/L Total Protein (6.3-8.2) g/dL Albumin (3.9-5) g/dL Albumin/Globulin Ratio % Lipase (13-60) units/L HCG, Qual Negative (Negative) Urine Color (Yellow) Urine Turbidity (Clear) Urine pH (5.0-7.0) Ur Specific [place] (1.003-1.030) Urine Protein (Negative) mg/dL Urine Glucose (UA) (Negative) mg/dL Urine Ketones (Negative) mg/dL Urine Blood (Negative) Urine Nitrite (Negative) Urine Bilirubin (Negative) Urine Urobilinogen (<2.0) mg/dL Ur Leukocyte Esterase (Negative) Urine WBC (Auto) (0.0-6.0) /HPF Urine RBC (Auto) (0.0-6.0) /HPF U Epithel Cells (Auto) (0-13.0) /HPF Urine Bacteria (Auto) (Negative) /HPF Urine Mucus /HPF - Radiology Data Radiology results: report reviewed CT ABDOMEN AND PELVIS WITH CONTRAST INDICATION / CLINICAL INFORMATION: mid abdominal pain. TECHNIQUE: Axial CT images were obtained through the abdomen and pelvis after 100 cc Omnipaque 300 milligrams percent IV contrast. All CT scans at this location are performed using CT dose reduction for ALARA by means of automated exposure control. COMPARISON: None available. FINDINGS: LOWER CHEST: No significant abnormality. Moderate size hiatal hernia is present. LIVER: No significant abnormality. GALLBLADDER: No significant abnormality. BILE DUCTS: No significant abnormality. PANCREAS: No significant abnormality. SPLEEN: No significant abnormality. ADRENALS: No significant abnormality. RIGHT KIDNEY and URETER: No significant abnormality. LEFT KIDNEY and URETER: No significant abnormality. STOMACH and SMALL BOWEL: No significant abnormality. COLON: No significant abnormality. APPENDIX: No significant abnormality. PERITONEUM: No free fluid. No free air. No fluid collection. LYMPH NODES: No significant adenopathy. AORTA and ARTERIES: No significant abnormality. IVC and VEINS: No significant abnormality. URINARY BLADDER: No significant abnormality. REPRODUCTIVE ORGANS: No significant abnormality. Involuting left ovarian cyst. ADDITIONAL FINDINGS: None. SKELETAL SYSTEM: No significant abnormality. IMPRESSION: 1. No significant abnormality. Please see comments 2. Hiatal hernia - Medical Decision Making 33-year-old female patient here with complaints of dental pain, abdominal pain, and vaginal discharge. Patient states she has history of abnormal lesion in her stomach and rechecks with GI every 3 years to monitor lesion. No rebound tenderness noted on exam. WBCs are normal. CT abdomen is normal. No trismus or dental abscess noted on exam. Patient states history of recurrent yeast vaginitis and bacterial vaginosis in declines vaginal exam. Patient to [place] home with GI, dental, and PCP follow-up. Critical care attestation.: If time is entered above; I have spent that time in minutes in the direct care of this critically ill patient, excluding procedure time. ED Disposition Clinical Impression: Hiatal hernia Vaginitis Qualifiers: Chronicity: acute Qualified Code(s): N76.0 - Acute vaginitis Abdominal pain Qualifiers: Abdominal location: periumbilical Qualified Code(s): R10.33 - Periumbilical pain Disposition: [place]- TO HOME OR SELFCARE Is pt being admited?: No Condition: Stable Instructions: Hiatal Hernia (ED), Vaginitis (ED), Abdominal Pain (ED) Additional Instructions: Please follow-up with your GI specialist as instructed by her primary care provider. If you experience any new or worsening symptoms return immediately to the emergency department. Also recommend follow-up with her primary care provider in 5-7 days. Please fill prescription provided by her primary care provider for omeprazole. Prescriptions: Fluconazole [Diflucan TAB] 150 mg PO ONCE 1 Days #2 tablet metroNIDAZOLE [Flagyl TAB] 500 mg PO Q12HR 7 Days #14 tab Amoxicillin [Trimox CAP] 500 mg PO Q8H 7 Days #21 capsule Acetaminophen/Codeine [Tylenol /Codeine # 3 tab] 1 tab PO Q8H PRN #6 tab PRN Reason: Pain , Severe (7-10) Referrals: PRIMARY CARE,MD [Primary Care Provider] - 3-5 Days Forms: Work/School Release Form(ED)
--- NOTE | 2019-01-16 22:37 | Cat Scan Report ---
CT ABDOMEN AND PELVIS WITH CONTRAST INDICATION / CLINICAL INFORMATION: mid abdominal pain. TECHNIQUE: Axial CT images were obtained through the abdomen and pelvis after 100 cc Omnipaque 300 milligrams pe rcent IV contrast. All CT scans at this location are performed using CT dose reduction for ALARA by means of automated exposure control. COMPARISON: None available. FINDINGS: LOWER CHEST: No significant abnormality. Moderate size hiatal hernia is present. LIVER: No significant abnormality. GALLBLADDER: No significant abnormality. BILE DUCTS: No significant abnormality. PANCREAS: No significant abnormality. SPLEEN: No significant abnormality. ADRENALS: No significant abnormality. RIGHT KIDNEY and URETER: No significant abnormality. LEFT KIDNEY and URETER: No significant abnormality. STOMACH and SMALL BOWEL: No significant abnormality. COLON: No significant abnormality. APPENDIX: No significant abnormality. PERITONEUM: No free fluid. No free air. No fluid collection. LYMPH NODES: No significant adenopathy. AORTA and ARTERIES: No significant abnormality. IVC and VEINS: No significant abnormality. URINARY BLADDER: No significant abnormality. REPRODUCTIVE ORGANS: No significant abnormality. Involuting left ovarian cyst. ADDITIONAL FINDINGS: None. SKELETAL SYSTEM: No significant abnormality. IMPRESSION: 1. No significant abnormality. Please see comments 2. Hiatal hernia Signer Name: Palmer Harkins MD Signed: 01/16/2019 10:33 PM Workstation Name: [id number]
[2019-01-16 23:55] VITALS: BP 124/83
== END 2019-01-16 22:50 | disposition home or self-care (01) ==
LOC: ED 17:02
DX: N76.0 Acute vaginitis (principal); R10.9 Unspecified abdominal pain; K22.70 Barrett's esophagus without dysplasia; Z98.51 Tubal ligation status; Z98.890 Other specified postprocedural states; Z79.1 Long term (current) use of non-steroidal anti-inflammatories (NSAID); Z79.899 Other long term (current) drug therapy
CPT/HCPCS: 36415; 74177; 80053; 81001; 83690; 84703; 85025; 99284; Q9967